=== PATIENT | male | born 1955 | race Caucasian/White ===

== ENCOUNTER 2024-10-24 10:41 | Outpatient (CLI) | payer MEDICARE, BC, SELFPAY ==
--- NOTE | 2024-10-24 12:03 | P.ANES_ITS ---
Anesthesia Charges Start Date/Time Anesthesia Start Date: 10/24/24 Anesthesia Start Time: 11:38 Stop Date/Time Anesthesia Stop Date: 10/24/24 Anesthesia Stop Time: 12:02 Coding CPT Codes CPT Codes: ANES LWR INTST SCR COLSC - [id number] ([id number]) P3 - PATIENT W/SEVERE SYS DISEASE, QK - CONTENT CREATION MANAGER 2-4 CNCRNT ANES PROC, QX - ODD TICKET CLERK SVC W/ MD MED DIRECTION
--- NOTE | 2024-10-24 12:03 | W.ANESCHARGE ---
Anesthesia Charges Start Date/Time Anesthesia Start Date: 10/24/24 Anesthesia Start Time: 11:38 Stop Date/Time Anesthesia Stop Date: 10/24/24 Anesthesia Stop Time: 12:02 Coding CPT Codes CPT Codes: ANES LWR INTST SCR COLSC - [id number] ([id number]) P3 - PATIENT W/SEVERE SYS DISEASE, QK - TAX ACCOUNTING MANAGER 2-4 CNCRNT ANES PROC, QX - FINISHING LAB TECHNICIAN SVC W/ MD MED DIRECTION
--- NOTE | 2024-10-24 12:26 | P.ANES_ITS ---
Anesthesia Charges Start Date/Time Anesthesia Start Date: 10/24/24 Anesthesia Start Time: 11:38 Stop Date/Time Anesthesia Stop Date: 10/24/24 Anesthesia Stop Time: 12:02 Coding CPT Codes CPT Codes: ANES LWR INTST SCR COLSC - [id number] ([id number]) P3 - PATIENT W/SEVERE SYS DISEASE, QX - CORE SHAPER SVC W/ MD MED DIRECTION, QK - SANDWICH COUNTER ATTENDANT 2-4 CNCRNT ANES PROC
--- NOTE | 2024-10-24 12:26 | W.ANESCHARGE ---
Anesthesia Charges Start Date/Time Anesthesia Start Date: 10/24/24 Anesthesia Start Time: 11:38 Stop Date/Time Anesthesia Stop Date: 10/24/24 Anesthesia Stop Time: 12:02 Coding CPT Codes CPT Codes: ANES LWR INTST SCR COLSC - [id number] ([id number]) P3 - PATIENT W/SEVERE SYS DISEASE, QX - COMMUNITY THEATER ACTOR SVC W/ MD MED DIRECTION, QK - FINANCIAL SERVICES SALES REPRESENTATIVE 2-4 CNCRNT ANES PROC
== END 2024-10-24 10:42 | disposition home or self-care (01) ==
LOC: OP CLINIC 10:46
PROVIDERS: PCP Family Medicine; Visit Provider Internal Medicine Gastroenterology
DX: Z12.11 Encounter for screening for malignant neoplasm of colon (principal)
CPT/HCPCS: 00812; 45378; J2704